=== PATIENT | female | born 1950 | race Caucasian/White ===

== ENCOUNTER 2022-01-17 09:39 | Outpatient (CLI) | payer MEDICARE, BC, SELFPAY ==
[2022-01-17 11:21] LABS: Creatinine Urine 103.9 mg/dL
[2022-01-17 11:25] LABS: Microalbumin Creatinine Ratio 20 mg/g (0-30); Microalbumin Urine 3 mg/dL
[2022-01-17 12:25] LABS: Albumin* 3.7 g/dL (3.3-5.0); Chloride* 103 mmol/L (96-114)
[2022-01-17 12:26] LABS: Potassium* 4.6 mmol/L (3.6-5.1); Sodium* 132 mmol/L (135-149)
[2022-01-17 12:28] LABS: Alanine Aminotransferase* 20 U/L (4-35); Alkaline Phosphatase* 116 U/L (40-150); Aspartate Amino Transferase* 21 U/L (12-35); Bilirubin Total* 0.3 mg/dL (0.1-1.5); Blood Urea Nitrogen* 14 mg/dL (7-30); Calcium* 9.4 mg/dL (8.4-10.6); Carbon Dioxide* 28 mmol/L (20-32); Cholesterol* 249 mg/dL (90-199); Creatinine* 0.7 mg/dL (0.5-1.5); Estimated Glomerular Filt Rate 94 ml/min; Glucose* 202 mg/dL (60-115); Total Protein* 6.3 g/dL (6.0-8.3); Triglycerides* 201 mg/dL (40-149)
[2022-01-17 12:29] LABS: HDL Cholesterol* 59 mg/dL (>=50); LDL Cholesterol Calculated 150 mg/dL (<100)
== END 2022-01-17 09:40 | disposition home or self-care (01) ==
LOC: NFLDREF 09:40
PROVIDERS: PCP Internal Medicine; Visit Provider Internal Medicine
DX: E11.9 Type 2 diabetes mellitus without complications (principal); E11.65 Type 2 diabetes mellitus with hyperglycemia; E78.5 Hyperlipidemia, unspecified; E66.9 Obesity, unspecified
CPT/HCPCS: 80053; 80061; 82043; 82570

== ENCOUNTER 2022-04-26 11:51 | Outpatient (CLI) | payer MEDICARE, BC, SELFPAY ==
[2022-04-26 11:22] LABS: Cholesterol* 264 mg/dL (90-199)
[2022-04-26 11:23] LABS: HDL Cholesterol* 64 mg/dL (>=50); LDL Cholesterol Calculated 173 mg/dL (<100); Triglycerides* 136 mg/dL (40-149)
== END 2022-04-26 11:52 | disposition home or self-care (01) ==
PROVIDERS: PCP Internal Medicine; Visit Provider Internal Medicine
DX: E11.65 Type 2 diabetes mellitus with hyperglycemia (principal); E78.5 Hyperlipidemia, unspecified
CPT/HCPCS: 80061

== ENCOUNTER 2022-12-05 08:39 | Outpatient (CLI) | payer MEDICARE, BC, SELFPAY | END 2022-12-05 08:40 | disposition home or self-care (01) | LOC: NFLDREF 11:45 | PROVIDERS: PCP Internal Medicine; Referring Provider Internal Medicine; Visit Provider Internal Medicine | DX: F10.20 Alcohol dependence, uncomplicated (principal) | CPT/HCPCS: 84450; 84460 ==

== ENCOUNTER 2023-01-10 12:47 | Outpatient (CLI) | payer MEDICARE, BC, SELFPAY ==
--- NOTE | 2023-01-10 13:00 | CRLHL7_ITS ---
For Patients: As a result of the Cures Act, medical imaging exams and procedure reports are released immediately into your electronic medical record. You may view this report before your referring provider. If you have questions, please contact your health care provider. BILATERAL SCREENING MAMMOGRAM WITH COMPUTER-AIDED DETECTION AND TOMOSYNTHESIS TECHNIQUE: CC and MLO views were obtained. These mammographic images have been obtained using full-field digital technique. These mammographic images were interpreted with the benefit of computer-aided detection. Breast tomosynthesis was used in this interpretation. COMPARISON FILM: 12/20/21, 10/08/20, 09/04/18 ([place]). FINDINGS: The breasts are heterogeneously dense, which may obscure small masses. IMPRESSION: There is no radiographic evidence for malignancy. ASSESSMENT: BI-RADS Category 2: Benign RECOMMENDATION: Routine screening mammogram in 1 year. A lay language report of this examination will be provided to the patient. BECKA CRAVEN M.D. Diagnostic/Nuclear Medicine Radiologist [email or web address] ROBE:ora Transcribed: 01/11/2023, 5:[address]/Dictated by: Becka Craven MD @ 01/11/2023 8:29:00 AM (Electronically Signed)
== END 2023-01-10 12:48 | disposition home or self-care (01) ==
PROVIDERS: PCP Internal Medicine; Visit Provider Internal Medicine
DX: Z12.31 Encounter for screening mammogram for malignant neoplasm of breast (principal); R92.2 Inconclusive mammogram
CPT/HCPCS: 77063; 77067

== ENCOUNTER 2023-05-15 07:38 | Outpatient (CLI) | payer MEDICARE, BC, SELFPAY | END 2023-05-15 07:39 | disposition home or self-care (01) | LOC: NFLDREF 05-19 10:15 | PROVIDERS: PCP Internal Medicine; Referring Provider Internal Medicine; Visit Provider Internal Medicine | DX: E78.5 Hyperlipidemia, unspecified (principal); E11.65 Type 2 diabetes mellitus with hyperglycemia; F10.20 Alcohol dependence, uncomplicated; E11.9 Type 2 diabetes mellitus without complications | CPT/HCPCS: 80053; 80061 ==

== ENCOUNTER 2023-08-15 07:50 | Outpatient (CLI) | payer MEDICARE, BC, SELFPAY | END 2023-08-15 07:51 | disposition home or self-care (01) | LOC: NFLDREF 15:58 | PROVIDERS: PCP Internal Medicine; Referring Provider Internal Medicine; Visit Provider Internal Medicine | DX: E11.9 Type 2 diabetes mellitus without complications (principal); E78.2 Mixed hyperlipidemia; Z79.899 Other long term (current) drug therapy | CPT/HCPCS: 80061; 82043; 82570 ==

== ENCOUNTER 2023-12-11 12:30 | Outpatient (RCR) | payer MEDICARE, BC, SELFPAY ==
--- NOTE | 2023-09-14 15:40 | PT.OPEX ---
PT [place] [facility] PT [facility] Eval Start: 09/14/23 09:00 Freq: Status: Active Protocol: Document 09/14/23 09:00 CRP (Rec: 09/14/23 15:37 CRP [id number]) E-signed By Matthew Henriquez PT Physical Therapy Outpatient Evaluation Insurance Information Recert Due Date 12/13/23 Insurance Name Medicare B Medical Diagnosis R sided sciatica Chronic low back pain Referring MD Dr Craig Subjective Subjective Pt c.o low back pain and pain into bilat hips. Pain increases most with sitting on a hard surface and bending. Walking may cause some sxs. Cannot stand much more than 10 minutes[address] more than an hour can cause pain down the R LE. R side is overall more painful than the L. 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 If she is in a comfortable chair at home she does not have the increased pain but will feel really stiff when she gets up. Feet can feel tingling at time especially trying to sleep at night. Pain Comments -12/03 Current Work Status Statue [employer] Objective Other/Pertinent Objective Trunk ROM: flex mod/usha decrease with pain into the gluteals, R>L. Ext usha dec with LBP. Bilat SB mod/usha dec with LBP. Bilat rot mod dec Hip ROM: R flex, ER, IR increased LBP. L hip ROM WNL SLR: R + 55 deg, L WNL MMT: myotomes WNL Functional Test Performed & Score Oswestry 40 Assessment Assessment/Impression Pt presents to the clinic with co LBP and radiating pain more into R LE compared to L. Pts presentation is consistent with lumbar spine DDD and resulting radicular sxs into the R LE that is complicated by adverse neurodynamics. Skilled PT is necessary to incorporate ther ex, nm jayy, manual therapy, ther act and pt education to decrease pain and improve functional mobility. Primary Functional Limitations Sitting Standing walking bending Plan of Care Rehabilitation Potential Excellent Rehabilitation Potential Comments 1. Pt will be independent with HEP in 6 weeks. 2[address] Pt will drive 2+ hours without LE sxs in 10 weeks. 3. Pt will complete workday without gluteal pain and 80% decrease in LBP in 12 weeks. Coordination/Communication With Referral Source Treatment Plan/Direct Interventions Joint Mobilization,Manual Therapy,Neuromuscular Re-ed, Self-Care/Home Management, Therapeutic Activities, Therapeutic Exercises Frequency/Duration 1-2x/wk for 12 weeks. Patient Will Be Discharged From Therapy Completion of LTG(s),Skills Plateau,Independent w/HEP, Independently Progressing Evaluation Billing Untimed Code Treatment Minutes 40 Complexity Moderate Certification Information Initial Certification Date 09/14/23 Ending Certification Date 12/13/23 Provider Signature Shows Agreement With POC & Medical Necessity Physician Signature & Date Requested Please Sign/Date Here Physician Comment/Change : Physician NPI Number #
== END 2024-04-09 23:59 | disposition home or self-care (01) ==
PROVIDERS: PCP Internal Medicine; Visit Provider Internal Medicine
DX: M54.31 Sciatica, right side (principal); M54.50 Low back pain, unspecified; Z51.89 Encounter for other specified aftercare; G89.29 Other chronic pain
CPT/HCPCS: 97110; 97140; 97162; 97535

== ENCOUNTER 2024-02-05 10:01 | Outpatient (CLI) | payer MEDICARE, BC, SELFPAY ==
--- NOTE | 2024-02-05 10:15 | CRLHL7_ITS ---
For Patients: As a result of the Century Cures Act, medical imaging exams and procedure reports are released immediately into your electronic medical record. You may view this report before your referring provider. If you have questions, please contact your health care provider. BILATERAL SCREENING MAMMOGRAM WITH COMPUTER-AIDED DETECTION AND TOMOSYNTHESIS TECHNIQUE: CC and MLO views were obtained. These mammographic images have been obtained using full-field digital technique. These mammographic images were interpreted with the benefit of computer-aided detection. Breast Tomosynthesis was used in this interpretation. COMPARISON FILM: 01/10/23, 12/20/21, 10/08/20. FINDINGS: The breasts are heterogeneously dense, which may obscure small masses. IMPRESSION: There is no radiographic evidence for malignancy. ASSESSMENT: BI-RADS Category 1: Negative RECOMMENDATION: Routine screening mammogram in 1 year. A lay language report of this examination will be provided to the patient. Sean Arthur M.D. Diagnostic Radiologist [email or web address] SP/Dictated by: Sean Arthur MD @ 02/05/2024 10:32:00 AM (Electronically Signed)
== END 2024-02-05 10:02 | disposition home or self-care (01) ==
PROVIDERS: PCP Internal Medicine; Visit Provider Internal Medicine
DX: Z12.31 Encounter for screening mammogram for malignant neoplasm of breast (principal); R92.2 Inconclusive mammogram
CPT/HCPCS: 77063; 77067

== ENCOUNTER 2024-02-20 08:03 | Outpatient (CLI) | payer MEDICARE, BC, SELFPAY | END 2024-02-20 08:04 | disposition home or self-care (01) | LOC: NFLDREF 02-23 06:11 | PROVIDERS: PCP Internal Medicine; Referring Provider Internal Medicine; Visit Provider Internal Medicine | DX: E78.5 Hyperlipidemia, unspecified (principal); E11.9 Type 2 diabetes mellitus without complications | CPT/HCPCS: 80061 ==

== ENCOUNTER 2024-07-01 14:26 | Outpatient (CLI) | payer MEDICARE, BC, SELFPAY | END 2024-07-01 14:27 | disposition home or self-care (01) | PROVIDERS: PCP Internal Medicine; Visit Provider Internal Medicine | DX: E78.5 Hyperlipidemia, unspecified (principal); E11.3293 Type 2 diabetes mellitus with mild nonproliferative diabetic retinopathy without macular edema, bilateral; E66.9 Obesity, unspecified; M85.80 Other specified disorders of bone density and structure, unspecified site; F10.20 Alcohol dependence, uncomplicated | CPT/HCPCS: 80053; 80061; 82043; 82306; 82570 ==

== ENCOUNTER 2024-10-17 15:43 | Outpatient (CLI) | payer MEDICARE, BC, SELFPAY | END 2024-10-17 15:44 | disposition home or self-care (01) | LOC: NFLDREF 10-21 01:33 | PROVIDERS: PCP Internal Medicine; Referring Provider Internal Medicine; Visit Provider Internal Medicine | DX: R30.0 Dysuria (principal); N30.90 Cystitis, unspecified without hematuria; N95.8 Other specified menopausal and perimenopausal disorders | CPT/HCPCS: 87086 ==

== ENCOUNTER 2024-12-24 09:21 | Outpatient (CLI) | payer MEDICARE, BC, SELFPAY | END 2024-12-24 09:22 | disposition home or self-care (01) | LOC: NFLDREF 12-26 17:11 | PROVIDERS: PCP Internal Medicine; Referring Provider Internal Medicine; Visit Provider Internal Medicine | DX: E11.3293 Type 2 diabetes mellitus with mild nonproliferative diabetic retinopathy without macular edema, bilateral (principal); E78.5 Hyperlipidemia, unspecified; Z82.5 Family history of asthma and other chronic lower respiratory diseases; Z79.84 Long term (current) use of oral hypoglycemic drugs | CPT/HCPCS: 80061; 82043; 82103; 82570 ==

== ENCOUNTER 2025-05-02 13:46 | Outpatient (CLI) | payer MEDICARE, BC, SELFPAY | END 2025-05-02 13:47 | disposition home or self-care (01) | LOC: NFLDREF 05-07 21:56 | PROVIDERS: PCP Internal Medicine; Referring Provider Internal Medicine | DX: N30.00 Acute cystitis without hematuria (principal) | CPT/HCPCS: 87086 ==

== ENCOUNTER 2025-05-16 14:42 | Outpatient (CLI) | payer MEDICARE, BC, SELFPAY | END 2025-05-16 14:43 | disposition home or self-care (01) | LOC: NFLDREF 05-22 17:12 | PROVIDERS: PCP Internal Medicine; Referring Provider Internal Medicine; Visit Provider Physician Assistant | DX: N39.0 Urinary tract infection, site not specified (principal) | CPT/HCPCS: 87086 ==

== ENCOUNTER 2025-05-29 15:53 | Outpatient (CLI) | payer MEDICARE, BC, SELFPAY | END 2025-05-29 15:54 | disposition home or self-care (01) | LOC: NFLDREF 06-03 10:10 | PROVIDERS: PCP Internal Medicine; Referring Provider Internal Medicine | DX: N39.0 Urinary tract infection, site not specified (principal) | CPT/HCPCS: 87086 ==

== ENCOUNTER 2025-06-03 14:56 | Outpatient (CLI) | payer MEDICARE, BC, SELFPAY ==
--- NOTE | 2025-06-03 15:20 | CRLHL7_ITS ---
For Patients: As a result of the Century Cures Act, medical imaging exams and procedure reports are released immediately into your electronic medical record. You may view this report before your referring provider. If you have questions, please contact your health care provider. INDICATION: BILATERAL SCREENING MAMMOGRAM, ASYMPTOMATIC 75 Y/O FEMALE COMPARISON: 02/05/2024, 01/10/2023, 12/20/2021 TECHNIQUE: Digital mammogram in CC and MLO projections including computer-aided detection (CAD) and tomosynthesis. BREAST COMPOSITION: The breasts are heterogeneously dense, which may obscure small masses. FINDINGS: No suspicious findings. ASSESSMENT: BI-RADS 2 Benign RECOMMENDATION: Annual screening mammogram. A lay language report of this examination will be provided to the patient. Dictated by: Sean Arthur MD @ 06/04/2025 12:11:34 (Electronically Signed)
== END 2025-06-03 14:57 | disposition home or self-care (01) ==
LOC: MAMMO 14:57
PROVIDERS: PCP Internal Medicine; Visit Provider Internal Medicine
DX: Z12.31 Encounter for screening mammogram for malignant neoplasm of breast (principal); R92.333 Mammographic heterogeneous density, bilateral breasts
CPT/HCPCS: 77063; 77067